=== PATIENT | female | born 1965 | race Caucasian/White ===

== ENCOUNTER 2020-02-01 22:59 | Emergency (ER) | payer SELFPAY ==
[2020-02-01 23:47] LABS: ABSOLUTE EOSINOPHILS # (AUTO) 0.2 10^3/uL (0.0-0.6); ABSOLUTE LYMPHOCYTES (AUTO) 1.3 10^3/uL (0.5-4.7); ABSOLUTE MONOCYTES (AUTO) 0.5 10^3/uL (0.1-1.4); ABSOLUTE NEUT (AUTO) 6.6 10^3/uL (1.7-8.2); BASOPHILS % (AUTO) 0.6 % (0-2); EOSINOPHILS % (AUTO) 2.6 % (0-6); HEMATOCRIT 38.8 % (36.0-47.0); HEMOGLOBIN 13.4 g/dL (12.0-15.5); LYMPHOCYTES % (AUTO) 15.2 % (13-45); MEAN CORPUSCULAR HEMOGLOBIN 30.9 pg (27.0-33.4); MEAN CORPUSCULAR HGB CONC 34.6 g/dL (32.0-36.0); MEAN CORPUSCULAR VOLUME 89 fl (80-97); MONOCYTES % (AUTO) 5.9 % (3-13); PLATELET COUNT 220 10^3/uL (150-450); RED BLOOD COUNT 4.35 10^6/uL (3.72-5.28); SEGMENTED NEUTROPHILS % (AUTO) 75.7 % (42-78); TOTAL CELLS COUNTED % (AUTO) 100 %; WHITE BLOOD COUNT 8.7 10^3/uL (4.0-10.5)
[2020-02-02 00:16] LABS: CREATINE KINASE MB 1.74 ng/mL (<4.55)
[2020-02-02 00:19] LABS: TROPONIN I 0.237 ng/mL
--- NOTE | 2020-02-02 00:21 | EKG REPORT ---
SEVERITY:- ABNORMAL ECG - SINUS RHYTHM PROBABLE ANTEROSEPTAL INFARCT, AGE INDETERM : Confirmed by: Alonso Mo MD 02-Feb-2020 00:20:37
[2020-02-02 00:26] LABS: ALBUMIN 4.2 g/dL (3.5-5.0); ALKALINE PHOSPHATASE 49 U/L (38-126); ASPARTATE AMINO TRANSFERASE 35 U/L (14-36); BILIRUBIN,TOTAL 0.5 mg/dL (0.2-1.3); BLOOD UREA NITROGEN 13 mg/dL (7-20); CALCIUM 8.8 mg/dL (8.4-10.2); CREATINE KINASE 82 U/L (30-135); GLUCOSE 129 mg/dL (75-110); POTASSIUM 4.3 mmol/L (3.6-5.0); TOTAL PROTEIN 7.4 g/dL (6.3-8.2)
[2020-02-02 00:33] LABS: ANION GAP 7 (5-19); CARBON DIOXIDE 29 mmol/L (22-30); CHLORIDE 99 mmol/L (98-107)
[2020-02-02] MEDS ORDERED: ASPIRIN 81 MG TABLET, CHEWABLE PO ONE (00:58)
[2020-02-02] MEDS: NITROGLYCERIN 0.4 MG/TAB 25 TAB/BOTTLE SL PRN ×2 (01:01→01:06)
--- NOTE | 2020-02-02 01:01 | ER Document Report ---
ED Cardiac - General Chief Complaint: Chest Pain Stated Complaint: CHEST PAIN Time Seen by Provider: 02/02/20 00:52 Notes: Patient is a 54-year-old female that comes to the emergency department for chief complaint of chest pain. Patient states that pain started while she was getting a tattoo at about 9 PM. She states pain is worsened and is constant now. She states it feels like something is sitting on her chest. She denies difficulty breathing, dizziness, nausea, vomiting, fever, cough, injury. She denies any cardiac history but reports strong family cardiac history with sister and father having heart attacks. She is treated for ADHD, anxiety/depression, and she has had a total hysterectomy (currently on estranol). She denies smoking, recreational drugs, alcohol. - Related Data Allergies/Adverse Reactions: milk Adverse Reaction (Intermediate, Verified 02/01/20 23:37) VOMITING iodine Adverse Reaction (Mild, Verified 02/01/20 23:37) Hives Penicillins Adverse Reaction (Mild, Verified 02/01/20 23:37) Hives shrimp Adverse Reaction (Mild, Verified 02/01/20 23:37) Hives Sulfa (Sulfonamide Antibiotics) Adverse Reaction (Mild, Verified 02/01/20 23:37) Hives Home Medications: ritilan 10mg. estranol. prozac Past Medical History - General Information source: Patient - Social History Smoking Status: Never Smoker Chew tobacco use (# tins/day): No Frequency of alcohol use: Occasional Drug Abuse: None Lives with: Family Family History: CAD - sister and father both with AL Psychiatric Medical History: Reports: Hx Attention Deficit Hyperactivity Disorder, Hx Depression - Immunizations Immunizations up to date: Yes Hx Diphtheria, Pertussis, Tetanus Vaccination: Yes Review of Systems - Review of Systems Constitutional: No symptoms reported EENT: No symptoms reported Cardiovascular: See HPI Respiratory: See HPI Gastrointestinal: No symptoms reported Genitourinary: No symptoms reported Female Genitourinary: No symptoms reported Musculoskeletal: No symptoms reported Skin: No symptoms reported Hematologic/Lymphatic: No symptoms reported Neurological/Psychological: No symptoms reported Physical Exam - Vital signs Vitals: Temp 97.9 F 02/01/20 23:31 - Notes Notes: GENERAL: Alert, interacts well. Patient appears to be mildly uncomfortable but she is not in severe distress HEAD: Normocephalic, atraumatic. EYES: Pupils equal, round, and reactive to light. Extraocular movements intact. ENT: Oral mucosa moist, tongue midline. Oropharynx unremarkable. Airway patent. NECK: Full range of motion. Supple. Trachea midline. No lymphadenopathy. LUNGS: Clear to auscultation bilaterally, no wheezes, rales, or rhonchi. No respiratory distress. Non-tender chest wall. HEART: Regular rate and rhythm. No murmur ABDOMEN: Soft, non-tender. Non-distended. EXTREMITIES: Moves all 4 extremities spontaneously. No edema, normal radial and dorsalis pedis pulses bilaterally. No cyanosis. BACK: no cervical, thoracic, lumbar midline tenderness. No saddle anesthesia, normal distal neurovascular exam. Moves all extremities in full range of motion. NEUROLOGICAL: Alert and oriented x3. Normal speech. Cranial nerves II through XII grossly intact. Strength 5/5 in all extremities. PSYCH: Normal affect, normal mood. SKIN: Warm, dry, normal turgor. No rashes or lesions noted. Course - Re-evaluation Re-evalutation: On my initial exam patient appears uncomfortable and reports current 9 out of 10 chest pain. She is not tachycardic, hypotensive, and she is in a sinus rhythm. She does have a strong family history of AL. EKG does not show STEMI. No overt ischemic changes. Patient will be given aspirin, nitroglycerin, and reevaluate d. Patient started have immediate improvement after nitroglycerin but on reevaluation still has about 7 out of 10 discomfort. She was given 3 mg of morphine. After this symptoms of pain resolved. Troponin is elevated at 0.237 which is above the cutoff range for NSTEMI. CBC, chemistry otherwise unremarkable. Chest x-ray is still pending and I have called and asked him to come and do this. EKG was repeated and shows no significant change from prior. Patient was medicated with Lovenox, I discussed with patient, she requested [facility] transfer. We do not have interventional cardiology at this facility. I called and spoke with [facility], patient is accepted for transfer by Dr. Page. Patient started having a very small amount of pain again, she does not have discomfort like earlier, she was given 1 nitroglycerin and small amount of morphine, afterwards symptoms completely resolved. Patient did not have return of pain. Troponin is trending upward and has doubled. 08/08/20 04:46 Patient reevaluated at bedside, she denies current pain, she denies any current complaints, vital signs without significant change from prior, patient is stable for transfer. EMS team is here, I gave report. - Vital Signs Vital signs: Temp Pulse Resp BP Pulse Ox 99.2 F 24 H 101/75 97 02/02/20 00:51 02/02/20 04:30 02/02/20 04:30 02/02/20 04:30 - Laboratory Result Diagrams: 02/01/20 23:35 02/01/20 23:35 Laboratory results interpreted by me: 02/01/20 23:35 Sodium 135.3 L Glucose 129 H - EKG Interpretation by Me Additional EKG results interpreted by me: EKG shows sinus rhythm at a rate of 68, normal axis, QTC of 481. No T wave inversions or ST segment changes in consecutive leads. Borderline Q wave in V2. Discharge - Discharge Clinical Impression: NSTEMI (non-ST elevated myocardial infarction) Chest pain Qualifiers: Chest pain type: unspecified Qualified Code(s): R07.9 - Chest pain, unspecified Condition: Stable Disposition: [facility]
[2020-02-02] MEDS ORDERED: ONDANSETRON HCL INJ/PF 4 MG/2 ML SDV IV ONE (01:21)
[2020-02-02] MEDS ORDERED: MORPHINE SULFATE 10 MG/ML INJ IV ONE ×2 (01:21→03:45)
[2020-02-02] MEDS ORDERED: ENOXAPARIN SODIUM INJ 60 MG/0.6 ML DISP.SYRIN SUBCUT SCH ×2 (01:30→10:00)
--- NOTE | 2020-02-02 02:06 | RADIOLOGY REPORT (SQ) ---
EXAM DESCRIPTION: XR CHEST 1 VIEW COMPLETED DATE/TME: 02/01/2020 23:30 CLINICAL HISTORY: 54 years, Female, chest pain COMPARISON: None. NUMBER OF VIEWS: 1 TECHNIQUE: Portable chest LIMITATIONS: None. FINDINGS: The heart size is normal. Minimal scarring in the lateral right upper lobe. Lungs are otherwise clear. No pneumothorax IMPRESSION: No acute cardiopulmonary process copyright 2010 [employer]- All Rights Reserved
[2020-02-02] MEDS ORDERED: ENOXAPARIN SODIUM INJ 60 MG/0.6 ML DISP.SYRIN SUBCUT ONE (02:15)
[2020-02-02] MEDS ORDERED: NITROGLYCERIN 2% OINTMENT 1 GM PACKET TP ONE (03:44)
[2020-02-02] MEDS ORDERED: NITROGLYCERIN 0.4 MG/TAB 25 TAB/BOTTLE SL ONE (03:45)
[2020-02-02 04:41] VITALS: BP 101/75
--- NOTE | 2020-02-02 10:42 | EKG REPORT ---
SEVERITY:- ABNORMAL ECG - SINUS RHYTHM PROBABLE ANTEROSEPTAL INFARCT, AGE INDETERM : Confirmed by: Alonso Mo MD 02-Feb-2020 10:41:57
--- NOTE | 2020-02-02 10:42 | EKG REPORT ---
SEVERITY:- ABNORMAL ECG - SINUS RHYTHM NONSPECIFIC T ABNORMALITIES, ANT-LAT LEADS BORDERLINE PROLONGED QT INTERVAL : Confirmed by: Alonso Mo MD 02-Feb-2020 10:41:33
== END 2020-02-02 07:08 | disposition short-term general hospital (02) ==
LOC: ER 22:59
DX: I21.4 Non-ST elevation (NSTEMI) myocardial infarction (principal); R07.9 Chest pain, unspecified; F90.9 Attention-deficit hyperactivity disorder, unspecified type; F32.9 Major depressive disorder, single episode, unspecified; Z90.710 Acquired absence of both cervix and uterus; Z79.899 Other long term (current) drug therapy; Z82.49 Family history of ischemic heart disease and other diseases of the circulatory system
CPT/HCPCS: 93005; 96376; 99285; 96372; 96374; 96375; 36415; 82553; 82550; 85025; 80053; 84484; 71045; 93010 ×2; J2270; J2405; J1650